=== PATIENT | female | born 1975 | race Caucasian/White ===

== ENCOUNTER 2018-06-19 11:27 | Outpatient (CLI) | payer BC ==
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
== END 2018-06-19 11:28 | disposition home or self-care (01) ==
LOC: BICRAD 11:27
PROVIDERS: ATTEND Specialist
DX: M54.9 Dorsalgia, unspecified (principal); M47.816 Spondylosis without myelopathy or radiculopathy, lumbar region
CPT/HCPCS: 72100

== ENCOUNTER 2018-07-16 10:35 | Outpatient (CLI) | payer BC ==
--- NOTE | 2018-07-16 13:06 | MRI ---
MRI LUMBAR SPINE WITHOUT CONTRAST: Date: 07/16/18 HISTORY: Pain. M54.9. COMPARISON: None. FINDINGS: The aortic contour is nonaneurysmal. No intraperitoneal adenopathy. No hydronephrosis. Paraspinal musculature is symmetric. No marrow infiltrative process. Normal lumbar lordosis. The conus medullaris terminates at the mid L1 vertebral body. Levels are as follows: L1-2: Normal disc. No neural foraminal or spinal canal narrowing. L2-3: Normal disc. No neural foraminal or spinal canal narrowing. L3-4: Normal disc. No neural foraminal or spinal canal narrowing. L4-5: Very small bilateral subforaminal disc osteophyte complexes. No significant neural foraminal o r spinal canal narrowing. L5-S1: Very small right subforaminal posterior disc osteophyte complex. No significant neural forami nal or spinal canal narrowing. Mild facet arthropathy. IMPRESSION: Minimal spondylosis of the lumbar spine. No evidence of acute abnormality. POS: CET
== END 2018-07-16 10:36 | disposition home or self-care (01) ==
LOC: TBSIIMAG 10:35
PROVIDERS: ATTEND Specialist
DX: M54.5 Low back pain (principal); M47.816 Spondylosis without myelopathy or radiculopathy, lumbar region
CPT/HCPCS: 72148

== ENCOUNTER 2023-07-28 15:23 | Outpatient (CLI) | payer BC | END 2023-07-28 15:24 | disposition home or self-care (01) | LOC: BICRAD 15:23 | PROVIDERS: ATTEND Specialist | DX: M54.50 Low back pain, unspecified (principal); M47.816 Spondylosis without myelopathy or radiculopathy, lumbar region | CPT/HCPCS: 72100 ==